=== PATIENT | female | born 2000 | race Caucasian/White ===

== ENCOUNTER 2019-06-14 18:04 | Emergency (ER) | payer OTHER ==
[~2019-06-14] VITALS: Ht 157.5 cm; Wt 75.3 kg
[~2019-06-14 18:04] MED LIST: BACTRIM DS TAB1 EACH PO; CIPRO500 MG PO; IBUPROFEN600 MG PO; KEFLEX500 MG PO; MACROBID 100 M100 MG PO; NAPROSYN250 MG PO; NORCO 5-325 TA1 EACH PO; ONDANSETRON ODT8 MG PO; PHENAZOPYRIDIN200 MG PO; PRENATAL TABLE1 EAC1 PO; TYLENOL325 MG PO; ZYRTEC10 MG PO
== END 2019-06-14 20:57 | disposition home or self-care (01) ==
LOC: ED 18:04
DX: O99.89 Other specified diseases and conditions complicating pregnancy, childbirth and the puerperium (principal); R07.9 Chest pain, unspecified; Z3A.13 13 weeks gestation of pregnancy
CPT/HCPCS: 93970; 99285-25

== ENCOUNTER 2019-12-12 00:13 | Inpatient (IN) | payer OTHER ==
[~2019-12-12] VITALS: Ht 157.5 cm; Wt 89.4 kg
--- OUTSIDE RECORDS SUMMARY | ~2019-12-12 | XMS | Clinical Summary ---
Demographics + + + | Address | [address] | | | [place] [address] | + + + | Home Phone | | + + + | Preferred Language | Unknown | + + + | Marital Status | Single | + + + | Jainism Affiliation | Unknown | + + + | Race | Unknown | + + + | Ethnic Group | Unknown | + + + Author + + + | Author | [facility] | | | and [place] | + + + | Organization | [facility] | | | and [place] | + + + | Address | Unknown | + + + | Phone | Unavailable | + + + Support + + +---------+ + | Name | Relationship | Address | Phone | + + +---------+ + | Unknown Unknown | ECON | Unknown | | + + +---------+ + Care Team Providers + +------+ + | Care Dental Equipment Mechanic Name | Role | Phone | + +------+ + | Unknown, Doctor | PCP | | + +------+ + Allergies Not on File Medications Not on file Active Problems Not on file Social History + +-------+ +--------+------+ | Tobacco Use | Types | Packs/Day | Years | Date | | | | | Used | | + +-------+ +--------+------+ | Never Assessed | | | | | + +-------+ +--------+------+ + + + | Sex Assigned at | Date Recorded | | | | + + + | Not on file | | + + + Last Filed Vital Signs Not on file Plan of Treatment + + +-------+ + | Health Maintenance | Due Date | Last | Comments | | | | Done | | + + +-------+ + | Hepatitis C | | | | | Screening | 8 | | | + + +-------+ + | Well Child Check | | | | | | 1 | | | + + +-------+ + | Vaccine: HPV (1 - | | | | | 2-dose series) | 9 | | | + + +-------+ + | Vaccine: | | | | | Dtap/Tdap/Td (1 - | 7 | | | | Tdap) | | | | + + +-------+ + | Cervical Cancer | | | | | Screening (Pap) | 9 | | | + + +-------+ + | Vaccine: Influenza | | | | | (#1) | 0 | | | + + +-------+ + Results Not on filefrom Last 3 Months Insurance + +--------+ +--------+ +---------+--------+ | Payer | Benefi | Subscriber | Effect | Phone | Address | Type | | | t Plan | ID | joon | | | | | | / | | Dates | | | | | | Group | | | | | | + +--------+ +--------+ +---------+--------+ | [employer] | [employer] | [id number] | 08/22/19 | [phone] | | Medica | | MEDICAID HMO | HEALTH | | 19-Pre | 1 | | id | | | MDCD | | sent | | | | | | [place]MO [place] | | | | | | + +--------+ +--------+ +---------+--------+ + +--------+ +--------+ + + | Guarantor Name | Accoun | Relation to | Date | Phone | Billing Address | | | t Type | Patient | of | | | | | | | | | | + +--------+ +--------+ + + | Pura Stallings | Person | Self | [birth year] | [address] | | | al/Fam | | 2000 | [phone] | [place] [address] | | | madai | | | 5 (Home) | | + +--------+ +--------+ + + Advance Directives + + + + + | Type | Date Recorded | Patient | Explanation | | | | 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
--- OUTSIDE RECORDS SUMMARY | ~2019-12-12 | XMS | Encounter Summary ---
Demographics + + + | Address | [address] | | | [place] [address] | + + + | Home Phone | | + + + | Preferred Language | Unknown | + + + | Marital Status | Single | + + + | Yarsanism Affiliation | Unknown | + + + | Race | Unknown | + + + | Ethnic Group | Unknown | + + + Author + + + | Author | [facility] | | | and [place] | + + + | Organization | [facility] | | | [...] Team Providers + +------+ + | Care Carpenter Helper [employer] Name | Role | Phone | + +------+ + PCP | Unavailable | + +------+ + Encounter Details +--------+ + + + + | Date | Type | Department | Care Team | Description | +--------+ + + + + | 08/21/ | Hospital | [facility] | Norma Stallings, | | | 2019 | Encounter | [facility] | [facility], [facility]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
--- NOTE | 2019-12-12 09:39 | PR ---
[facility] [address] [facility] [place], [place] [address] Signed Progress Notes IP Datetime Report Generated by CPN: 12/12/2019 09:39 PROGRESS NOTES: [id number] Impression: Normal Progression of Labor Procedures: Artificial ROM Plan: Continue Present Management; Anticipate Vaginal Delivery VITAL SIGNS: [id number] EXAM: [id number] Dilatation: 4.0 Effacement: 50 Station: -3 Contractions: every 5-6 minutes MEMBRANES: [id number] Membranes Status: Ruptured Comments: Patient tolerating contractions well. AROM without difficulty with large amount clear fluid FETUS A: [id number] FHR Baseline: 130 Variability: Moderate 6-25bpm Accelerations: 15X15 Presentation: Vertex FETUS B: [id number] Signing Physician: Romina Vargas MD Copies: ~ *Electronically Signed* 12/12/19 0939 ROMINA VARGAS MD PATIENT NAME: ALYSON MCKEON PROGRESS NOTE DATE OF : 98 PHYSICIAN: ROMINA VARGAS MD RPT #: [id number] REPORT IS CONFIDENTIAL AND NOT TO BE RELEASED WITHOUT AUTHORIZATION
--- NOTE | 2019-12-13 09:10 | PR ---
[facility] [address] [facility] [place], [place] [address] Signed PP Progress Notes Datetime Report Generated by N: 12/13/2019 09:10 SUBJECTIVE: [id number] Pain: Within Normal Limits Nausea/Vomiting: Denies Vital Signs: [id number] Vital Signs: Reviewed; Within Normal Limits Abdomen/Uterus: Normal Lochia: Normal Extremities: Normal IMPRESSION/PLAN/PROCEDURES: [id number] Impression: Normal Progression Plan: Continue Present Management Procedures: None Progress Notes: Doing well, without complaint Signing Physician: Romina Vargas MD Copies: ~ *Electronically Signed* 12/13/19909 ROMINA VARGAS MD PATIENT NAME: ALYSON MCKEON PROGRESS NOTE DATE OF : 98 PHYSICIAN: ROMINA VARGAS MD RPT #: [id number] REPORT IS CONFIDENTIAL AND NOT TO BE RELEASED WITHOUT AUTHORIZATION
--- NOTE | 2019-12-14 10:01 | PR ---
[facility] [address] [facility] [place] [facility] [place] [address] Signed PP Progress Notes Datetime Report Generated by CPN: 12/14/2019 10:01 SUBJECTIVE: [id number] Pain: Within Normal Limits Nausea/Vomiting: Denies Vital Signs: [id number] Vital Signs: Reviewed; Within Normal Limits Notable Details: PP Hgb/Hct = 13.2/39.9 Abdomen/Uterus: Normal Lochia: Normal Extremities: Normal IMPRESSION/PLAN/PROCEDURES: M7119894 Impression: Normal Progression Plan: Discharge Procedures: None Progress Notes: Doing well, without complaint, ready to go home. Signing Physician: Romina Vargas MD Copies: ~ *Electronically Signed* 12/14/19 1001 ROMINA VARGAS MD PATIENT NAME: ALYSON MCKEON PROGRESS NOTE DATE OF : 98 PHYSICIAN: ROMINA VARGAS MD RPT #: [id number] REPORT IS CONFIDENTIAL AND NOT TO BE RELEASED WITHOUT AUTHORIZATION
== END 2019-12-14 11:10 | disposition home or self-care (01) | DRG 806 ==
LOC: EDSTATUS 00:13 → FBC 00:14 → FBCO 15:38 → FBC 12-14 11:10
PROVIDERS: ADMIT General Practice
PROC: 10E0XZZ Delivery of Products of Conception, External Approach (ICD-10-PCS; principal; 2019-12-12)
PROC: 3E0S3BZ Introduction of Anesthetic Agent into Epidural Space, Percutaneous Approach (ICD-10-PCS; 2019-12-12)
PROC: 00HU33Z Insertion of Infusion Device into Spinal Canal, Percutaneous Approach (ICD-10-PCS; 2019-12-12)
DX: O99.824 Streptococcus B carrier state complicating childbirth (principal); O98.32 Other infections with a predominantly sexual mode of transmission complicating childbirth; Z37.0 Single live birth; Z3A.39 39 weeks gestation of pregnancy; A60.00 Herpesviral infection of urogenital system, unspecified
CPT/HCPCS: 01960; 85027; A9270; J2540; J2590; J2795; J3010; J7121

== ENCOUNTER 2022-03-17 00:57 | Emergency (ER) | payer OTHER ==
[~2022-03-17] VITALS: Ht 157.5 cm; Wt 87.1 kg
[2022-03-17] MEDS ORDERED: VITAFOL-OB+DHA1 EACH PO (01:20)
[2022-03-17] MEDS ORDERED: DICLEGIS DR 101 EACH PO (02:35)
== END 2022-03-17 02:30 | disposition home or self-care (01) ==
LOC: ED 00:57
DX: O21.9 Vomiting of pregnancy, unspecified (principal); O98.511 Other viral diseases complicating pregnancy, first trimester; B34.9 Viral infection, unspecified; Z3A.11 11 weeks gestation of pregnancy; Z20.822 Contact with and (suspected) exposure to COVID-19
CPT/HCPCS: 36415; 80053; 81001; 84702; 85025; 87502; 99284; J7121; U0003

== ENCOUNTER 2022-10-14 05:31 | Inpatient (IN) | payer OTHER ==
[~2022-10-14] VITALS: Ht 157.5 cm; Wt 93.4 kg
[~2022-10-14 05:31] MED LIST changes: +DICLEGIS DR 101 EACH PO; +VITAFOL-OB+DHA1 EACH PO
[2022-10-14 06:43] VITALS: BP 123/72
--- NOTE | 2022-10-14 14:01 | PR ---
[facility] [facility] [address] [place], [place] [address] Signed Progress Notes IP Datetime Report Generated by CPN: 10/14/2022 14:01 PROGRESS NOTES: [id number] Impression: Normal Progression of Labor; Reassuring Heart Rate Procedures: Artificial ROM Plan: Continue Present Management Informed Consent Obtain: Vaginal Delivery VITAL SIGNS: [id number] Vital Signs: Reviewed VS Notable Details: One slightly elevated systolic EXAM: [id number] Dilatation: 3.0 Effacement: 70 Station: -2 Contractions: q 2-3 min MEMBRANES: [id number] Comments: Pt seen and examined. Doing well. Discussed AROM and verbal consent obtained. Reviewed cephalic w/ head well applied. AROM easily performed for moderate amount clear fluid. Mother and baby tolerated well. Locums RN present as victim witness administrator FETUS A: [id number] FHR Baseline: 150 Variability: Moderate 6-25bpm Accelerations: 15X15 Decelerations: None FHR Category: Category I Presentation: Vertex Comments on Fetus A: No evidence of metabolic acidosis FETUS B: [id number] Signing Physician: Nicholas Maria DO Copies: ~ *Electronically Signed* 10/14/22 1401 NICHOLAS MARIA (ELKIN) DO PATIENT NAME: ALYSON MCKEON PROGRESS NOTE DATE OF : 98 PHYSICIAN: NICHOLAS MARIA (JD) DO RPT #: [id number] REPORT IS CONFIDENTIAL AND NOT TO BE RELEASED WITHOUT AUTHORIZATION
--- NOTE | 2022-10-14 17:19 | PR ---
[facility] [address] [place], [place] [address] Signed Progress Notes IP Datetime Report Generated by CPKeegan: 10/14/2022 17:19 PROGRESS NOTES: [id number] Impression: Normal Progression of Labor; Reassuring Heart Rate Procedures: Sterile Vag Exam Plan: Continue Present Management; Anesthesia Consult Informed Consent Obtain: Vaginal Delivery Other Informed Consents: Epidural VITAL SIGNS: [id number] Vital Signs: Reviewed VS Notable Details: One slightly elevated systolic EXAM: F0370303 Dilatation: 4.0 Effacement: 100 Station: -1 Contractions: q 2-3 min MEMBRANES: [id number] Comments: Called to patient room for discomfort and pelvic pressure. On exam, pt 4/80/-1 and very uncomfortable. Desires epidural. Nitrous not providing adequate relief. Anesthesia notified and will be en route TERESA. All questions answered FETUS A: [id number] FHR Baseline: 150 Variability: Moderate 6-25bpm Accelerations: 15X15 Decelerations: None FHR Category: Category I Presentation: Vertex Comments on Fetus A: No evidence of metabolic acidosis FETUS B: [id number] Signing Physician: Nicholas Maria DO Copies: ~ *Electronically Signed* 10/14/22 3941 NICHOLAS MARIA (ELKNI) DO PATIENT NAME: ALYSON MCKEON ALEC PROGRESS NOTE DATE OF : 98 PHYSICIAN: NICHOLAS MARIA) DO RPT #: [id number] REPORT IS CONFIDENTIAL AND NOT TO BE RELEASED WITHOUT AUTHORIZATION
--- NOTE | 2022-10-14 18:30 | PR ---
[facility] [address] [place], [place] [address] Signed Progress Notes IP Datetime Report Generated by CPN: 10/14/2022 18:30 PROGRESS NOTES: [id number] Impression: Normal Progression of Labor; Reassuring Heart Rate Procedures: Sterile Vag Exam Plan: Continue Present Management; Anticipate Vaginal Delivery Informed Consent Obtain: Vaginal Delivery Other Informed Consents: Epidural VITAL SIGNS: [id number] Vital Signs: Reviewed VS Notable Details: One slightly elevated systolic EXAM: [id number] Dilatation: 4.0 Effacement: 100 Station: -1 Contractions: q 2-3 min MEMBRANES: [id number] Comments: Pt seen and examined. More comfortable w/ epidural and anesthesia at bedside evaluating. Pt now 8cm. FHT reassuring. Anticipate soon FETUS A: [id number] FHR Baseline: 150 Variability: Moderate 6-25bpm Accelerations: 15X15 Decelerations: None FHR Category: Category I Presentation: Vertex Comments on Fetus A: No evidence of metabolic acidosis FETUS B: [id number] Signing Physician: Nicholas Maria DO Copies: ~ *Electronically Signed* 10/14/22 4980 NICHOLAS MARIA (ELKIN) DO PATIENT NAME: ALYSON MCKEON PROGRESS NOTE DATE OF : 98 PHYSICIAN: NICHOLAS MARIA) DO RPT #: [id number] REPORT IS CONFIDENTIAL AND NOT TO BE RELEASED WITHOUT AUTHORIZATION
--- NOTE | 2022-10-14 19:20 | PR ---
[facility] [address] [place], [place] [address] Signed Progress Notes IP Datetime Report Generated by CPN: 10/14/2022 19:20 PROGRESS NOTES: [id number] Impression: Normal Progression of Labor; Reassuring Heart Rate Procedures: Sterile Vag Exam Plan: Continue Present Management; Anticipate Vaginal Delivery Informed Consent Obtain: Vaginal Delivery Other Informed Consents: Epidural VITAL SIGNS: [id number] Vital Signs: Reviewed VS Notable Details: One slightly elevated systolic EXAM: [id number] Dilatation: 10.0 Effacement: 100 Station: -1 Contractions: q 2-3 min MEMBRANES: [id number] Comments: Pt seen and examined. C/O some pelvic pressure. On exam, complete 0 station. Will prepare for pushing. Anticpate soon FETUS A: [id number] FHR Baseline: 150 Variability: Moderate 6-25bpm Accelerations: 15X15 Decelerations: None FHR Category: Category I Presentation: Vertex Comments on Fetus A: No evidence of metabolic acidosis FETUS B: [id number] Signing Physician: Annamarie Oscar MD Copies: ~ *Electronically Signed* 10/14/221919 ANNAMARIE OSCAR MD PATIENT NAME: ALYSON MCKEON PROGRESS NOTE DATE OF : 98 PHYSICIAN: ANNAMARIE OSCAR MD RPT #: [id number] REPORT IS CONFIDENTIAL AND NOT TO BE RELEASED WITHOUT AUTHORIZATION
--- NOTE | 2022-10-15 17:28 | PR ---
[facility] [address] [place], [place] [address] Signed PP Progress Notes Datetime Report Generated by CPKeegan: 10/15/2022 17:28 SUBJECTIVE: [id number] Pain: Within Normal Limits Nausea/Vomiting: Denies Flatus: Yes Bowel Movement: No Vital Signs: [id number] Vital Signs: Reviewed Notable Details: Elevated pressure this afternoon. Resolved Cardiovascular: Normal Respiratory: Normal Abdomen/Uterus: Normal Lochia: Normal Vulva/Perineum: Not Done Breasts: Not Done CVA Tenderness: Normal Extremities: Normal Incision: Not Applicable Progress: Normal Exam Comments: Fundus firm U-2 nontender IMPRESSION/PLAN/PROCEDURES: [id number] Impression: Normal Progression Plan: Continue Present Management Progress Notes: Pt seen and examined. Doing well. Ambulating, voiding, and tolerating full diet. Pain and lochia minimal. well. No fevers/chills or other concern. No STYLES, RUQ pain, or visual changes. One episode of elevated BPs this afternoon that resolved. Pt desires d/c home. Reviewed d/c instructions in detail including s/sx preeclampsia and indications for urgent evaluation over the weekend. Discussed recommendation for BP check in 2-3 days in the office and appointment made. Unsure of plans for pp contraception. No other questions or concerns. Signing Physician: Nicholas Maria DO Copies: ~ *Electronically Signed* 10/15/22 5841 NICHOLAS MARIA (ELKIN) DO PATIENT NAME: ALYSON MCKEON ALEC PROGRESS NOTE DATE OF : 98 PHYSICIAN: NICHOLAS MARIA) DO RPT #: [id number] REPORT IS CONFIDENTIAL AND NOT TO BE RELEASED WITHOUT AUTHORIZATION
== END 2022-10-15 21:10 | disposition home or self-care (01) | DRG 806 ==
LOC: FBC 05:31
PROVIDERS: ADMIT Obstetrics & Gynecology; ATTEND Obstetrics & Gynecology
PROC: 10E0XZZ Delivery of Products of Conception, External Approach (ICD-10-PCS; principal; 2022-10-14)
PROC: 10907ZC Drainage of Amniotic Fluid, Therapeutic from Products of Conception, Via Natural or Artificial Opening (ICD-10-PCS; 2022-10-14)
PROC: 3E0R3BZ Introduction of Anesthetic Agent into Spinal Canal, Percutaneous Approach (ICD-10-PCS; 2022-10-14)
PROC: 00HU33Z Insertion of Infusion Device into Spinal Canal, Percutaneous Approach (ICD-10-PCS; 2022-10-14)
PROC: 3E033VJ Introduction of Other Hormone into Peripheral Vein, Percutaneous Approach (ICD-10-PCS; 2022-10-14)
DX: O76 Abnormality in fetal heart rate and rhythm complicating labor and delivery (principal); O98.32 Other infections with a predominantly sexual mode of transmission complicating childbirth; Z37.0 Single live birth; Z3A.39 39 weeks gestation of pregnancy; A60.09 Herpesviral infection of other urogenital tract; O69.1XX0 Labor and delivery complicated by cord around neck, with compression, not applicable or unspecified
CPT/HCPCS: 01960; 36415; 85027; 86850; 86900; 86901; A9270; J2590; J2795

== ENCOUNTER 2024-04-05 08:26 | Emergency (ER) | payer OTHER ==
[~2024-04-05] VITALS: Ht 157.5 cm; Wt 87.6 kg
[~2024-04-05 08:26] MED LIST changes: +MELOXICAM15 MG PO
[2024-04-05] MEDS ORDERED: PRENATAL MULTI1 EAC3 PO (08:43)
[2024-04-05 08:44] LABS: BILIRUBIN, URINE NEGATIVE (negative); BLOOD/HGB, URINE NEGATIVE (Negative); KETONE, URINE NEGATIVE (Negative); LEUK ESTERASE, URINE NEGATIVE (negative); NITRITE, URINE NEGATIVE (negative); PH, URINE 6.5 (5-7)
[2024-04-05 09:07] LABS: BASOPHILS 0.4 % (0-2); EOSINOPHILS 0.7 % (0-6); HEMOGLOBIN 13.7 g/dL (12.0-18.0); LYMPHOCYTES 17.8 % (24-44); MCH 30.5 (27-36); MCV 87.2 fl (81-99); MONOCYTES 4.8 % (0-12); NEUTROPHILS 76.3 % (39-80); PLATELET COUNT 190 K/uL (140-440); RBC 4.48 M/ul (4.3-5.7); RDW 13.4 (10.5-15.0)
[2024-04-05 09:20] LABS: ALBUMIN 2.9 g/dL (3.4-5.0); ALBUMIN/GLOBULIN RATIO 0.74 (1.1-2.4); ANION GAP 13.8 (7-21); BILIRUBIN, TOTAL 0.5 ng/dL (0.2-1.0); BUN/CREATININE RATIO 10.16 (6.0-28.6); CALCIUM 8.7 mg/dL (8.5-10.1); CREATININE, SERUM 0.59 mg/dL (0.55-1.02); POTASSIUM 3.8 mmol/L (3.5-5.1); PROTEIN, TOTAL 6.8 g/dL (6.4-8.2)
[2024-04-05] MEDS ORDERED: SODIUM CHLORIDE 0.9% 1,000 ML IV SCH (10:45)
[2024-04-05 14:14] VITALS: BP 108/59
== END 2024-04-05 14:14 | disposition home or self-care (01) ==
LOC: ED 08:26
PROVIDERS: Emergency Medicine
DX: O99.891 Other specified diseases and conditions complicating pregnancy (principal); R10.30 Lower abdominal pain, unspecified; Z3A.15 15 weeks gestation of pregnancy; Z79.899 Other long term (current) drug therapy
CPT/HCPCS: 36415; 74181; 76705; 76815; 80053; 81003; 83690; 85025; 99284-25; J7030

== ENCOUNTER 2024-09-17 15:20 | Inpatient (IN) | payer OTHER ==
[~2024-09-17] VITALS: Ht 157.5 cm; Wt 95.3 kg
[~2024-09-17 15:20] MED LIST changes: +PRENATAL MULTI1 EAC3 PO
[2024-09-17] MEDS ORDERED: PENICILLIN G POTASSIUM 5 MUNITS in SODIUM CHLORIDE 0.9% 100 ML IV ONE (16:15)
[2024-09-17] MEDS ORDERED: MAGNESIUM HYDROXIDE/AL HYDROX 30 ML CUP PO PRN ×2 (16:15→20:30)
[2024-09-17] MEDS ORDERED: CALCIUM CARBONATE 500 MG CHEW PO PRN ×2 (16:15→20:30)
[2024-09-17] MEDS ORDERED: PENICILLIN G POTASSIUM 5 MUNITS VIAL ONE (16:19)
[2024-09-17 16:24] LABS: HEMATOCRIT 46.1 % (35.0-50.0); HEMOGLOBIN 16.1 g/dL (12.0-18.0); MCH 30.1 (27-36); MCHC 34.9 g/dl (30-36); MCV 86.3 fl (81-99); RBC 5.34 M/ul (4.3-5.7); RDW 13.4 (10.5-15.0)
[2024-09-17 16:39] LABS: AMPHETAMINES, URINE NEGATIVE (NEGATIVE); BARBITURATES, URINE NEGATIVE (NEGATIVE); BENZODIAZEPINE, URINE NEGATIVE (NEGATIVE); BUPRENORPHINE, URINE NEGATIVE (NEGATIVE); CANNABINOID, URINE NEGATIVE (NEGATIVE); COCAINE, URINE NEGATIVE (NEGATIVE); ECSTASY, URINE NEGATIVE (NEGATIVE); FENTANYL, URINE NEGATIVE (NEGATIVE); METHADONE, URINE NEGATIVE (NEGATIVE); OPIATES, URINE NEGATIVE (NEGATIVE); OXYCODONE, URINE NEGATIVE (NEGATIVE); PHENCYCLIDINE, URINE NEGATIVE (NEGATIVE)
[2024-09-17] MEDS ORDERED: ePHEDrine sulfate 5 MG/ML SYRINGE IV PRN (17:00)
[2024-09-17] MEDS ORDERED: ROPIVACAINE 0.2% 200 ML BAG EPIDURAL SCH (17:00)
[2024-09-17] MEDS ORDERED: LACTATED RINGER'S 2,000 ML IV ONE (17:00)
[2024-09-17] MEDS ORDERED: LACTATED RINGER'S 500 ML IV PRN (17:00)
[2024-09-17] MEDS ORDERED: fentaNYL citrate 100 MCG/2 ML VIAL ONE (17:01)
[2024-09-17 17:21] LABS: ABO A; RH POSITIVE
[2024-09-17 17:22] LABS: ANTIBODY SCREEN NEGATIVE
[2024-09-17 18:22] VITALS: BP 126/65
[2024-09-17] MEDS ORDERED: OXYTOCIN/0.9 % SODIUM CHLORIDE 30 UNITS/500 ML BAG IV SCH (19:30)
[2024-09-17] MEDS ORDERED: BENZOCAINE 60 ML AEROSOL TOP PRN (20:30)
[2024-09-17] MEDS ORDERED: OXYTOCIN/0.9 % SODIUM CHLORIDE 500 ML IV SCH (20:30)
[2024-09-17] MEDS ORDERED: PENICILLIN G POTASSIUM 2.5 MUNITS in DEXTROSE 5% 100 ML IV SCH (20:30)
[2024-09-17] MEDS ORDERED: WITCH HAZEL/GLYCERIN 1 EA PAD TOP PRN (20:30)
[2024-09-17] MEDS ORDERED: miSOPROStoL 200 MCG TAB BUCCAL ONE (20:30)
[2024-09-17] MEDS ORDERED: HYDROCODONE/ACETA 5/325 TAB PO PRN (20:30)
[2024-09-17] MEDS ORDERED: HYDROCORTISONE ACETATE 25 MG SUPP PR PRN (20:30)
[2024-09-17] MEDS ORDERED: MAGNESIUM HYDROXIDE 30 ML UDC PO PRN (20:30)
[2024-09-17] MEDS ORDERED: SENNOSIDES/DOCUSATE 1 EA TAB PO SCH (21:00)
[2024-09-17] MEDS ORDERED: ACETAMINOPHEN 500 MG TAB PO SCH (22:00)
[2024-09-18] MEDS ORDERED: IBUPROFEN 600 MG TAB PO SCH (02:00)
== END 2024-09-19 11:05 | disposition home or self-care (01) | DRG 807 ==
LOC: FBCO 15:20 → FBC 16:06
PROVIDERS: ADMIT Obstetrics & Gynecology; ATTEND Obstetrics & Gynecology
PROC: 10E0XZZ Delivery of Products of Conception, External Approach (ICD-10-PCS; principal; 2024-09-17)
PROC: 10907ZC Drainage of Amniotic Fluid, Therapeutic from Products of Conception, Via Natural or Artificial Opening (ICD-10-PCS; 2024-09-17)
PROC: 00HU33Z Insertion of Infusion Device into Spinal Canal, Percutaneous Approach (ICD-10-PCS; 2024-09-17)
PROC: 3E0R3BZ Introduction of Anesthetic Agent into Spinal Canal, Percutaneous Approach (ICD-10-PCS; 2024-09-17)
DX: O14.94 Unspecified pre-eclampsia, complicating childbirth (principal); Z37.0 Single live birth; Z3A.38 38 weeks gestation of pregnancy; O77.0 Labor and delivery complicated by meconium in amniotic fluid; O99.824 Streptococcus B carrier state complicating childbirth; O69.1XX0 Labor and delivery complicated by cord around neck, with compression, not applicable or unspecified; O99.344 Other mental disorders complicating childbirth; F41.9 Anxiety disorder, unspecified; F32.A Depression, unspecified; O76 Abnormality in fetal heart rate and rhythm complicating labor and delivery; Z86.19 Personal history of other infectious and parasitic diseases; Z79.899 Other long term (current) drug therapy; Z87.440 Personal history of urinary (tract) infections
CPT/HCPCS: 01960; 36415; 80307; 85027; 86850; 86900; 86901; A9270; J2540; J7121